=== PATIENT | female | born 1995 | race Caucasian/White ===

== ENCOUNTER 2020-11-22 08:09 | Emergency (ER) | payer OTHER ==
--- NOTE | 2020-11-22 09:02 | ED Physician Documentation ---
PD HPI ABD PAIN - Stated complaint Stated Complaint: ABD PX - Chief complaint Chief Complaint: Abd Pain - History obtained from History obtained from: Patient - History of Present Illness Timing - onset: How many hours ago (3-4) Timing - duration: Hours (3-4) Timing - details: Abrupt onset, Still present Quality: Sharp, Pain Location: RLQ, LLQ Radiation: Lower back Improved by: No: Laying still Worsened by: Moving, Palpation Associated symptoms: Nausea, Diarrhea (awoke from sleep and had a single loose stool just prior to onset of the pain. Then intense severe sharp lower abd pain initially right, then spread to left as well. Worst for an hour or so, and then has eased some, but still hurting a lot.). No: Fever, Vomiting Similar symptoms before: Diagnosis (similar to ruptured cyst in the past. Also has had pains at time of menses intermittently with questioned dx of endometriosis. Pt trying to get so is not wanting OCPs nor any control.) Review of Systems Constitutional: denies: Fever, Chills Nose: denies: Rhinorrhea / runny nose, Congestion Throat: denies: Sore throat Respiratory: denies: Cough GI: reports: Abdominal Pain, Nausea. denies: Vomiting, Constipation : reports: LMP (2 weeks ago). 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 ) - Cardiac Cardiac: RRR, No murmur - Respiratory Respiratory: Clear bilaterally - Abdomen Abdomen: Normal bowel sounds, Soft, Non distended, No organomegaly, Other (tender lower abd/suprapubic both left and right with some local guarding; no percussion nor rebound tenderness. ) - Female Female : Deferred - Rectal Rectal: Deferred - Back Back: No CVA TTP - Derm Derm: Normal color, Warm and dry, No rash - Extremities Extremities: No tenderness to palpate, Normal ROM s pain - Neuro Neuro: Alert and oriented X 3, No motor deficit, Normal speech Results - Vitals Vitals: Vital Signs - 24 hr 11/22/20 11/22/20 11/22/20 08:27 09:02 11:00 Temperature 36.4 C L 36.5 C Heart Rate 85 74 86 Respiratory 16 17 18 Rate Blood Pressure 123/72 120/75 128/80 O2 Saturation 98 100 99 11/22/20 11:37 Temperature 37.0 C Heart Rate 78 Respiratory 16 Rate Blood Pressure 109/66 O2 Saturation 99 Oxygen O2 Source Room air - Labs Labs: Laboratory Tests 11/22/20 11/22/20 11/22/20 08:58 08:58 09:03 WBC 4.6 L RBC 4.43 Hgb 14.6 Hct 42.6 MCV 96.2 MCH 33.0 H MCHC 34.3 RDW 11.7 L Plt Count 148 MPV 10.1 Neut # (Auto) 2.9 Lymph # (Auto) 1.3 L Tate # (Auto) 0.3 Eos # (Auto) 0.1 Baso # (Auto) 0.0 Absolute Nucleated RBC 0.00 Nucleated RBC % 0.0 Sodium Potassium Chloride Carbon Dioxide Anion Gap BUN Creatinine Estimated GFR (MDRD) Glucose Calcium Total Bilirubin AST ALT Alkaline Phosphatase Total Protein Albumin Globulin Albumin/Globulin Ratio Lipase Urine Color YELLOW Urine Clarity CLEAR Urine pH 6.0 Ur Specific [place] 1.020 Urine Protein NEGATIVE Urine Glucose (UA) NEGATIVE Urine Ketones NEGATIVE Urine Occult Blood NEGATIVE Urine Nitrite NEGATIVE Urine Bilirubin NEGATIVE Urine Urobilinogen 0.2 (NORMAL) Ur Leukocyte Esterase NEGATIVE Ur Microscopic Review NOT INDICATED Urine Culture Comments NOT INDICATED Urine HCG, Qual NEGATIVE 11/22/20 09:03 WBC RBC Hgb Hct MCV MCH MCHC RDW Plt Count MPV Neut # (Auto) Lymph # (Auto) Tate # (Auto) Eos # (Auto) Baso # (Auto) Absolute Nucleated RBC Nucleated RBC % Sodium 142 Potassium 3.9 Chloride 106 Carbon Dioxide 23 Anion Gap 13.0 BUN 10 Creatinine 0.7 Estimated GFR (MDRD) 100 Glucose 91 Calcium 9.4 Total Bilirubin 0.6 AST 17 ALT 15 Alkaline Phosphatase 44 Total Protein 7.3 Albumin 4.5 Globulin 2.8 Albumin/Globulin Ratio 1.6 Lipase 29 Urine Color Urine Clarity Urine pH Ur Specific [place] Urine Protein Urine Glucose (UA) Urine Ketones Urine Occult Blood Urine Nitrite Urine Bilirubin Urine Urobilinogen Ur Leukocyte Esterase Ur Microscopic Review Urine Culture Comments Urine HCG, Qual - Rads (name of study) pelvic U/S Radiology: Prelim report reviewed (collapsing right ovarian cyst 3 cm with complex free fluid c/w hemorrhagic cyst. ), See rad report PD MEDICAL DECISION MAKING - ED course Complexity details: reviewed results (hemorrhagic cyst right ovary, collapsing, with some free fluid. ), considered differential, d/w patient Departure - Departure Disposition: Home, Self Care Clinical Impression: Acute pelvic pain, female Ovarian cyst Qualifiers: Laterality: right Qualified Code(s): N83.201 - Unspecified ovarian cyst, right side Condition: Stable Record reviewed to determine appropriate education?: Yes Instructions: ED Cyst Ovarian Follow-Up: Gisele Driver MD [Provider Admit Priv/Credential] - Comments: Your ultrasound shows a collapsing cyst on the right with some free fluid suggesting a ruptured cyst. It is mostly collapsed and so the worst of the pain should be improving though I would anticipate some pelvic pain and cramps over the next several days. Recheck of persists or increases significantly. Meanwhile some anti- inflammatory such as ibuprofen or naproxen 2-3 times daily and add Tylenol if needed for pains. Stay well-hydrated. Follow-up with gynecology regarding further ongoing evaluation and treatment since you have had episodes like this in the recent past. Discharge Date/Time: 11/22/20 11:40
[2020-11-22 09:17] LABS: BASOPHILS % (AUTO) 0.4 %; EOSINOPHILS # (AUTO) 0.1 10^3/uL (0.0-0.7); EOSINOPHILS % (AUTO) 1.1 %; HCT - HEMATOCRIT 42.6 % (37.0-47.0); HGB - HEMOGLOBIN 14.6 g/dL (12.0-16.0); LYMPHOCYTES # (AUTO) 1.3 10^3/uL (1.5-3.5); LYMPHOCYTES % (AUTO) 28.4 %; MEAN CORPUSCULAR HGB CONC 34.3 g/dL (32.0-36.0); MEAN CORPUSCULAR VOLUME 96.2 fL (81.0-99.0); MEAN PLATELET VOLUME 10.1 fL (7.9-10.8); MONOCYTES # (AUTO) 0.3 10^3/uL (0.0-1.0); MONOCYTES % (AUTO) 6.4 %; NEUTROPHILS # (AUTO) 2.9 10^3/uL (1.5-6.6); NEUTROPHILS % (AUTO) 63.7 %; PLT - PLATELET COUNT 148 10^3/uL (130-450); RED BLOOD COUNT 4.43 10^6/uL (4.20-5.40); RED CELL DISTRIBUTION WIDTH 11.7 % (12.0-15.0); WHITE BLOOD COUNT 4.6 x10^3/uL (4.8-10.8)
[2020-11-22 09:23] LABS: BILIRUBIN,URINE NEGATIVE (NEGATIVE); GLUCOSE, URINE (UA) NEGATIVE (NEGATIVE); KETONES,URINE (UA) NEGATIVE (NEGATIVE); LEUKOCYTE ESTERASE, URINE NEGATIVE (NEGATIVE); NITRITE,URINE NEGATIVE (NEGATIVE); OCCULT BLOOD,URINE NEGATIVE (NEGATIVE); PROTEIN,URINE NEGATIVE (NEGATIVE); UROBILINOGEN,URINE 0.2 (NORMAL) E.U./dL (NORMAL)
[2020-11-22 09:25] LABS: CLARITY,URINE CLEAR (CLEAR); HCG UR QUAL NEGATIVE
[2020-11-22 09:32] LABS: ALBUMIN 4.5 g/dL (3.2-5.5); ALBUMIN/GLOBULIN RATIO 1.6 (1.0-2.2); BILIRUBIN,TOTAL 0.6 mg/dL (0.2-1.0); CALCIUM 9.4 mg/dL (8.5-10.3); CREATININE 0.7 mg/dL (0.4-1.0); POTASSIUM 3.9 mmol/L (3.5-5.0); TOTAL PROTEIN 7.3 g/dL (6.7-8.2)
[2020-11-22 11:38] VITALS: BP 109/66
--- NOTE | 2020-11-22 11:40 | Ultrasound Report ---
PROCEDURE: Pelvic w/Transvag+Doppler Comp INDICATIONS: abrupt lower abd pain this morning TECHNIQUE: Real-time scanning was performed of the pelvic organs, with image documentation. Additional endovagi nal scanning was necessary due to incomplete visualization of the adnexal and endometrial structures by transabdominal scanning. COMPARISON: None. 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 Uterus: Uterus is retroverted, and normal in size at 4.9 x 5.7 x 7.7 cm. The endometrium measures 5 .2 mm in combined thickness. Ovaries: The right ovary measures 5.1 x 2.4 x 2.8 cm and contains a complex presumed hemorrhagic cys t measuring up to 3.1 x 1.9 x 2.3 cm. The left ovary is normal measuring 2.7 x 1.7 x 1.3 cm. IMPRESSION: Presumed hemorrhagic ovarian cyst at the right ovary, measuring up to 3.1 cm in dimension. There also is a small to moderate degree of mildly complex free fluid within the peritoneal space containing lo w-level internal echoes. This generally is secondary to a rupture of a hemorrhagic cyst, versus ruptu re of a simple cyst producing a small amount of secondary bleeding. Follow-up pelvic ultrasound in 6-8 weeks is recommended to confirm resolution of the right-sided comp jim cyst. No evidence of ovarian torsion. Findings conveyed to Dr. Suero, emergency room physician caring for the patient. Reviewed by: Alberto Doll MD on 11/22/2020 10:38 AM [facility] Approved by: Alberto Doll MD on 11/22/2020 10:38 AM [facility] Station ID: [id number]
== END 2020-11-22 11:40 | disposition home or self-care (01) ==
LOC: ED 08:09
DX: N83.201 Unspecified ovarian cyst, right side (principal)
CPT/HCPCS: 36415; 80053; 81001; 81003; 81025; 83690; 85025; 87086; 93975; 99284

== ENCOUNTER 2020-11-23 07:00 | Outpatient (CLI) | payer OTHER ==
[2020-11-24 21:30] LABS: CHLAMYDIA TRACHOMATIS DNA NEGATIVE (NEGATIVE); NEISSERIA GONORRHOEAE DNA NEGATIVE (NEGATIVE); TRICHOMONAS VAGINALIS DNA NEGATIVE (NEGATIVE)
== END 2020-11-23 23:59 | disposition home or self-care (01) ==
LOC: LAB.R 07:00
PROVIDERS: ATTEND Obstetrics & Gynecology
DX: Z11.3 Encounter for screening for infections with a predominantly sexual mode of transmission (principal)
CPT/HCPCS: 87491; 87591; 87661

== ENCOUNTER 2021-07-04 16:09 | Outpatient (CLI) | payer OTHER ==
--- NOTE | 2021-07-04 17:05 | XRAY Report ---
PROCEDURE: Lumbar Spine 2 View INDICATIONS: STRAIN OF MUSCLE, FASCIA, AND TENDON OF LOWER BACK TECHNIQUE: 2 views of the lumbar spine were acquired. COMPARISON: None. FINDINGS: L-SPINE: 5 nonrib-bearing vertebrae. No acute displaced fracture or malalignment. The vertebral body heights are maintained. The disc space heights are maintained. The sacroiliac joints appear patent. SOFT TISSUES: No focal abnormality. IMPRESSION: 1.No acute osseous abnormality of the lumbar spine. Reviewed by: Morgan Antunez MD on 07/04/2021 5:03 PM PDT Approved by: Morgan Antunez MD on 07/04/2021 5:03 PM PDT Station ID: [id number]
--- NOTE | 2021-07-04 17:34 | XRAY Report ---
PROCEDURE: Ankle 3 View RT INDICATIONS: STRAIN OF INTRINSIC MUSCLE AND TENDON AT R ANKLE AND FOOT LEVEL TECHNIQUE: 3 views of the ankle were acquired. COMPARISON: None. FINDINGS: Bones: No fractures or dislocations. Ankle mortise is normally aligned. No suspicious bony lesions . Soft tissues: No definite tibiotalar joint effusion with evaluation limited due to obliquity of the lateral view. Achilles tendon appears normal. IMPRESSION: 1. No fracture or dislocation. Reviewed by: Ray Cuevas MD on 07/04/2021 5:33 PM PDT Approved by: Ray Cuevas MD on 07/04/2021 5:33 PM PDT Station ID: [id number]
== END 2021-07-04 23:59 ==
LOC: DI.N 16:09
PROVIDERS: ATTEND Family Medicine
DX: S39.012A Strain of muscle, fascia and tendon of lower back, initial encounter (principal); S96.211A Strain of intrinsic muscle and tendon at ankle and foot level, right foot, initial encounter

== ENCOUNTER 2021-10-13 16:53 | Emergency (ER) | payer OTHER ==
[2021-10-13] MEDS ORDERED: TETANUS/DIPHTHERIA/PERTUSSIS 0.5 ML SYRINGE IM ONE (17:11)
[2021-10-13] MEDS ORDERED: AMOX/CLAV 875 MG/125 MG TABLET PO STA (17:11)
--- NOTE | 2021-10-13 17:13 | ED Physician Documentation ---
PD HPI UPPER EXT INJURY - Stated complaint Stated Complaint: LT HAND DOG BITE - Chief complaint Chief Complaint: Laceration - History obtained from History obtained from: Patient (26-year-old woman with unknown tetanus status was accidentally bitten to the left index finger, her nondominant finger by her dog while they were playing fetch with a stick just prior to arrival. 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 Acidophilus/L.bulgaricus 1 each PO TID #30 tablet 10/13/21 [Lactobacillus Tablet] - Allergies Allergies/Adverse Reactions: Allergies Allergy/AdvReac Type Severity Reaction Status Date / Time No Known Drug Allergies Allergy Verified 10/13/21 17:01 - Social History Does the pt smoke?: No Smoking Status: Never smoker Does the pt drink ETOH?: Yes Does the pt have substance abuse?: No - Immunizations Immunizations are current?: Yes - POLST Patient has POLST: No PD ED PE NORMAL - Vitals Vital signs reviewed: Yes - General General: Alert and oriented X 3, No acute distress - Extremities Extremities: Other (2 puncture wounds about the proximal phalanx of the left second digit without tenderness or limited range of motion or distal neurovascular compromise.) - Neuro Neuro: Alert and oriented X 3, Normal speech - Psych Psych: Normal mood, Normal affect Results - Vitals Vitals: Vital Signs - 24 hr 10/13/21 10/13/21 16:57 17:01 Temperature 36.3 C L 36.3 C L Heart Rate 82 82 Respiratory 18 18 Rate Blood Pressure 133/98 H 133/98 H O2 Saturation 98 98 Oxygen O2 Source Room air PD MEDICAL DECISION MAKING - ED course ED course: Wounds were irrigated and dressed with Xeroform and tube gauze. She was counseled on wound care. Departure - Departure Disposition: Home, Self Care Clinical Impression: Dog bite Qualifiers: Encounter type: initial encounter Qualified Code(s): W54.0XXA - Bitten by dog, initial encounter Condition: Good Record reviewed to determine appropriate education?: Yes Instructions: ED Bite Dog Prescriptions: Amox/Clav 875/125 [Augmentin] 1 each PO Q12H #6 tablet L. Acidophilus/L.bulgaricus [Lactobacillus Tablet] 1 each PO TID #30 tablet Comments: I sent your prescription electronically to [facility] in [place]. Come back for any signs of infection which would include: Redness, swelling, drainage, increased pain, or fevers. You can wash it soap and water. Keep it covered and moist with bacitracin ointment which is available over the counter; avoid neosporin.
[2021-10-13 17:33] VITALS: BP 118/66
== END 2021-10-13 17:43 | disposition home or self-care (01) ==
LOC: ED 16:53
DX: S61.231A Puncture wound without foreign body of left index finger without damage to nail, initial encounter (principal); W54.0XXA Bitten by dog, initial encounter; Z23 Encounter for immunization
CPT/HCPCS: 90471; 90715; 99283; A9270